=== PATIENT | male | born 1965 | race Caucasian/White ===

== ENCOUNTER 2019-11-18 15:26 | Emergency (ER) | payer OTHER, SELFPAY ==
[2019-11-18] VITALS (8 sets, daily range): BP systolic 170–216; BP diastolic 89–118; PULSE 56–86; RESP 14–20; TEMP 36.6; O2SAT 96–100
--- NOTE | 2019-11-18 15:39 | DI.RAD.S_ITS ---
PROCEDURE: XR RIBS LT MIN 3V W CXR1V INDICATIONS: fall on eliquis, pain low anterior to axillary chest TECHNIQUE: 2 views of the left ribs were acquired, along with a single view chest. COMPARISON: None. FINDINGS: Surgical changes and devices: None. Bones and chest wall: No fractures or dislocations. No suspicious bony lesions. Overlying soft tissues appear unremarkable. Lungs and pleura: No pleural effusions or pneumothorax. Lungs appear clear. Mediastinum: Mediastinal contours appear normal. Heart size is normal. IMPRESSION: Normal for age, source of current pain after trauma symptoms is not seen. Please note that initial detection of nondisplaced rib fractures may be limited and if unusual symptoms persist followup in 4-5 days may be warranted (at which time a fracture visualization is generally improved). Dictated by: Jim Curran M.D. on 11/18/2019 at 15:21 Approved by: Jim Curran M.D. on 11/18/2019 at 15:23
[2019-11-18 16:06] LABS: Add Manual Diff / Slide Review NO; Basophils Absolute Auto 100 /uL (0-100); Eosinophils Absolute Auto 300 /uL (0-450); Eosinophils Percent Auto 5.1 % (2-4); Hematocrit 43.7 % (41-53); Hemoglobin 14.9 g/dL (13.5-17.5); Lymphocytes Absolute Auto 1200 /uL (1100-4500); Lymphocytes Percent Auto 23.5 % (25-40); Mean Corpuscular HGB Conc 34.1 % (30-36); Mean Corpuscular Hemoglobin 31.4 PG (26-34); Monocytes Absolute Auto 500 /uL (0-900); Monocytes Percent Auto 9.5 % (3-14); Neutrophils Absolute Auto 3000 /uL (1500-7000); Neutrophils Percent Auto 60.9 % (50-75); Platelet Count 200 X10^3/uL (150-400); Red Blood Cell Count 4.75 X10^6/uL (4.5-5.9); Red Cell Distribution Width 14.6 % (11.6-14.8); White Blood Cell Count 4.9 X10^3/uL (4.5-11.0)
[2019-11-18 16:10] LABS: Prothrombin Time 11.5 SECONDS (10.1-12.7)
[2019-11-18 16:13] LABS: PTT Partial Thromboplastin Tim 42 SECONDS (26.4-36.2)
--- NOTE | 2019-11-18 16:14 | DI.CT.S_ITS ---
PROCEDURE: CT CHEST W CON INDICATIONS: Fall, severe SOB, Severe left lower chest wall pain. left ri TECHNIQUE: After the administration of intravenous contrast, 5 mm thick sections acquired from the pulmonary apices to the posterior costophrenic angles. 1 mm axial lung, 5 mm thick coronal and sagittal reformats and 7 mm axial MIP were acquired. For radiation dose reduction, the following was used: automated exposure control, adjustment of mA and/or kV according to patient size. COMPARISON: None. FINDINGS: Image quality: Excellent. Lungs and pleura: No acute consolidation. No pleural effusions or pneumothorax. Central and peripheral airways are patent and normal in caliber. Mediastinum: Heart size is normal. No pericardial effusion. No mediastinal or hilar adenopathy by size criteria. Thoracic aorta and central pulmonary arteries are normal in size. Esophagus is normal in caliber. No hiatal hernia. Bones and chest wall: Minimally displaced left lateral sixth rib fracture is seen No axillary or supraclavicular adenopathy by size criteria. Thyroid gland negative. Abdomen: Partially visualized low-attenuation lesion in the anterior right renal cortex, technically non-specific and incompletely imaged. This could be further assessed with ultrasound as clinically warranted Hepatic steatosis IMPRESSION: Left lateral sixth rib fracture, minimally displaced No pneumothorax. No acute consolidation Scattered scarring/atelectasis Additional chronic and incidental findings as above. Dictated by: Fede Faith M.D. on 11/18/2019 at 17:03 Approved by: Fede Faith M.D. on 11/18/2019 at 17:09
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
[2019-11-18 16:18] LABS: Alanine Aminotransferase 45 IU/L (<50); Albumin 4.6 g/dL (3.5-5.0); Albumin Globulin Ratio 1.6 (1.0-2.8); Alkaline Phosphatase 73 U/L (38-126); Aspartate Aminotransferase 42 IU/L (17-59); BUN Creatinine Ratio 12.9 (6-22); Bilirubin Total 0.4 mg/dL (0.2-1.3); Blood Urea Nitrogen 12 mg/dL (9-20); Calcium 9.7 mg/dL (8.4-10.2); Carbon Dioxide 33 mmol/L (22-32); Chloride 102 mmol/L (98-107); Creatine Kinase 165 U/L (55-170); Estimated Glomerular Filt Rate > 60.0 mL/min (>60); Globulin 2.8 g/dL (1.7-4.1); Glucose 101 mg/dL (70-100); HEMOLYSIS < 15 (0-50); Lipase 72 U/L (23-300); Potassium 4.2 mmol/L (3.4-5.1); Sodium 141 mmol/L (137-145); Total Protein 7.4 g/dL (6.3-8.2)
[2019-11-18 16:29] LABS: Troponin I < 0.012 ng/mL (0.01-0.034)
[2019-11-18] MEDS: HYDROMORPHONE 1 MG INJ IV (16:29)
[2019-11-18] MEDS: ONDANSETRON 4 MG/2 ML INJ IV (16:30)
[2019-11-18 16:33] LABS: CKMB % Relative Index 0.8 % (1.5-5.0); Creatine Kinase MB 1.28 ng/mL (<2.37)
[2019-11-18] MEDS: LIDOCAINE PATCH 1 EACH ADH..PATCH TOP (17:35)
--- NOTE | 2019-11-18 17:45 | RT ---
Pt instructed proper splint cough techniques
== END 2019-11-18 18:07 | disposition home or self-care (01) ==
PROVIDERS: Emergency Provider Emergency Medicine; PCP Physician Assistant
DX: S22.32XA Fracture of one rib, left side, initial encounter for closed fracture (principal); R07.89 Other chest pain; R06.02 Shortness of breath; W19.XXXA Unspecified fall, initial encounter
CPT/HCPCS: 36415; 71101; 71260; 80053; 82550; 82553; 83690; 84484; 85025; 85610; 85730; 93005; 96374; 96375; 99284; J1170; J2405

== ENCOUNTER → 2021-10-13 09:19 | Outpatient (CLI) | payer OTHER, SELFPAY ==
[2021-10-13 10:51] LABS: BUN Creatinine Ratio 15.5 (6-22); Blood Urea Nitrogen 15 mg/dL (9-20); Calcium 9.1 mg/dL (8.4-10.2); Carbon Dioxide 34 mmol/L (22-32); Chloride 102 mmol/L (98-107); Cholesterol 167 mg/dL (140-199); Estimated Glomerular Filt Rate > 60 mL/min (>60); Glucose 114 mg/dL (70-100); HDL Cholesterol 38 mg/dL (40-60); HEMOLYSIS < 15 (0-50); LDL Cholesterol Calculated 107 mg/dL (<100); Potassium 3.9 mmol/L (3.4-5.1); Sodium 141 mmol/L (137-145); Triglycerides 110 mg/dL (35-150)
== END ==
PROVIDERS: Referring Provider Nurse Practitioner; Visit Provider Nurse Practitioner
DX: Z51.81 Encounter for therapeutic drug level monitoring (principal); Z79.899 Other long term (current) drug therapy; Z68.42 Body mass index [BMI] 45.0-49.9, adult
CPT/HCPCS: 36415; 80048; 80061; 83036; 83735

== ENCOUNTER 2023-11-22 07:15 | Day surgery (SDC) | payer OTHER, SELFPAY ==
--- NOTE | 2023-11-22 | PATH_ITS ---
[facility] Accession Number: [id number] No. of containers..01 Tissue . 01 Material submitted: . hepatic flexure - HEPATIC FLEXURE POLYPS X 3 . 01 Diagnosis: A. HEPATIC FLEXURE POLYPS X3, POLYPECTOMY: Tubular adenoma(s). MRV 11/27/2023 1340 Local . 01 Electronically signed: . Yane Kee MD, Pathologist NPI- [id number] . 01 Gross description: . Received in formalin with two patient identifiers and hepatic flexure polyps x3, are multiple rangel soft tissue fragments aggregating to 1.5 x 1.0 x 0.3 cm. Filtered and submitted entirely in A1. ([email or web address] [id number]) /MRV 11/23/2023 1707 Local . 01 Pathologist provided ICD-10: D12.6 . 01 CPT . 889819 Specimen Comment: A courtesy copy of this report has been sent to [phone] Performed at: [address] [facility] [address], [place], [place] [id number] MD Jamal Rothman MD Phone: [phone]
[2023-11-22 08:06] VITALS: BP 158/81; PULSE 68; RESP 18; TEMP 36.4; O2SAT 98
--- NOTE | 2023-11-22 08:41 | PM.HP.1 ---
History of Present Illness History of Present Illness Date Patient Seen: 11/22/23 Chief complaint: Screening Colonoscopy Narrative: Screening colonoscopy last over 10 years ago PENDING SALE TO [facility] Social History Smoking Status: Never smoker Meds Home Medications and Allergies Home Medications Medication Instructions Recorded Confirmed Type cyclobenzaprine 10 mg tablet 10 mg PO TID PRN muscle spasm #15 11/18/19 Rx tabs lidocaine 5 % topical patch 1 patch topical DAILY #7 ea 11/18/19 Rx (Lidoderm) naproxen 500 mg tablet (Naprosyn) 500 mg PO BID PRN pain #20 tabs 11/18/19 Rx oxycodone-acetaminophen 7.5 mg-325 1 tab PO Q6H PRN pain #15 tabs 11/18/19 Rx mg tablet (Percocet) Allergies Allergy/AdvReac Type Severity Reaction Status Date / Time lisinopril [LISINOPRIL] Allergy Unknown Unverified 09/13/17 12:08 Exam Vital Signs (past 8 hours): - 11/22/23 08:06 Temperature 97.5 F L Pulse Rate 68 Respiratory Rate 18 Blood Pressure 158/81 H Pulse Oximetry 98 Oxygen Delivery Method Room Air Oxygen Delivery Method Room Air Narrative Exam Narrative: Oropharynx free of lesions Chest clear to auscultation percussion Cardiac exam reveals no S3 or murmur Assessment & Plan Assessment & Plan narrative: Need for 10 year follow-up screening colonoscopy. Risks, benefits, alternatives have been explained.
--- NOTE | 2023-11-22 08:43 | P.OP.COLON_ITS ---
Operative Date/Time/Diagnoses Date of procedure: 11/22/23 Pre-op diagnosis: See indication and findings Procedure & Clinicians Study performed: Colonoscopy Indications: Screening colonoscopy Surgeon: Eren Royal Procedure Notes Procedure in detail: After informed consent was obtained the patient was placed in left lateral decubitus position. The video colonoscope was introduced to the rectum slowly advanced to the cecum. Preparation was good. On slow withdrawal mucosa was carefully examined. The scope was removed. The patient tolerated procedure well. Blood loss none Complications none Sedation mac Findings 1. Three polyps at or near the hepatic flexure. Largest was almost cm and semi pedunculated this was removed was a hot snare. The others were 2 to 5 mm removed with Jumbo biopsy forceps or cold snare. One specimen may have been lost in the colon. 2. Otherwise negative colonoscopy to cecum Will be in touch regarding his findings but I would suggest he will need follow- up colonoscopy sooner than 10 years.
[2023-11-22 09:16] VITALS: BP 113/72; PULSE 70; RESP 16; TEMP 37; O2SAT 95
[2023-11-22 09:23] VITALS: BP 131/77; PULSE 69; RESP 17; TEMP 37; O2SAT 96
[2023-11-22 09:29] VITALS: BP 125/79; PULSE 66; RESP 12; TEMP 36.7; O2SAT 96
== END 2023-11-22 09:35 | disposition home or self-care (01) ==
PROVIDERS: PCP Nurse Practitioner Family; Referring Provider Internal Medicine Gastroenterology; Visit Provider Internal Medicine Gastroenterology
PROC: 0DJD8ZZ Inspection of Lower Intestinal Tract, Via Natural or Artificial Opening Endoscopic (ICD-10-PCS; CPT 45378; principal; 2023-11-22 08:30)
DX: Z12.11 Encounter for screening for malignant neoplasm of colon (principal)
CPT/HCPCS: 45385; 45380; J2704